=== PATIENT | male | born 1985 | race Hispanic/Latino ===

== ENCOUNTER 2017-08-10 17:57 | Emergency (ER) | payer OTHER ==
[~2017-08-10] VITALS: Ht 172.7 cm; Wt 97.5 kg
[~2017-08-10 17:57] MED LIST: IBUPROFEN400 MG PO; LANTUS100 UNITS/ SUB-Q; LISINOPRIL20 MG PO; NORVASC5 MG PO; NOVOLOG100 UNITS/ SUB-Q; OXYCODON-ACETA1 EAC2 PO; SIMVASTATIN10 MG PO; [UNRECOGNIZED DRUG - REMARK]
== END 2017-08-10 22:30 | disposition home or self-care (01) ==
LOC: ED 17:57
DX: K59.00 Constipation, unspecified (principal); I10 Essential (primary) hypertension; E11.9 Type 2 diabetes mellitus without complications; Z90.49 Acquired absence of other specified parts of digestive tract; Z79.899 Other long term (current) drug therapy
CPT/HCPCS: 74177; 80053; 81001; 83690; 85025; 96361; 96374; 96375; 99284; J2270; J2405; J7030; Q9967

== ENCOUNTER 2018-11-29 16:30 | Emergency (ER) | payer OTHER ==
[~2018-11-29] VITALS: Ht 172.7 cm; Wt 104.3 kg
--- OUTSIDE RECORDS SUMMARY | ~2018-11-29 | XMS | Clinical Summary ---
Demographics + + + | Address | [address] | | | [place] [address] | + + + | Home Phone | | + + + | Preferred Language | Unknown | + + + | Marital Status | Single | + + + | Holiness Affiliation | 1041 | + + + | Race | Unknown | + + + | Ethnic Group | Unknown | + + + Author + + + | Author | [facility] | | | and [place] | + + + | Organization | [facility] | | | and [place] | [...] Team Providers + +------+ + | Care B2B Sales Representative Name | Role | Phone | + +------+ + | Clayton Cortez PA-C | PP | | + +------+ + Allergies No Known Allergies Medications + + + +---------+------+------+-------+ | Medication | Sig | Dispensed | Refills | Star | End | Statu | | | | | | t | Date | s | | | | | | Date | | | + + + +---------+------+------+-------+ | | Take 1-2 tablets by | 20 | 0 | 05/2 | | Activ | | HYDROcodone-acetamin | mouth every 4 hours | tablet | | 3/20 | | e | | ophen (NORCO) 5-325 | as needed for Pain. | | | 15 | | | | mg per tablet | | | | | | | + + + +---------+------+------+-------+ Active Problems Not on file Social History + +-------+ +--------+------+ | Tobacco Use | Types | Packs/Day | Years | Date | | | | | Used | | + +-------+ +--------+------+ | Never Smoker | | | | | + +-------+ +--------+------+ + + +---------+ + | Alcohol Use | Drinks/We | oz/Week | Comments | | | ek | | | + + +---------+ + | No | | | | + + +---------+ + + + + | Sex Assigned at | Date Recorded | | | | + + + | Not on file | | + + + + + + + | Job Start Date | Occupation | Industry | + + + + | Not on file | Not on file | Not on file | + + + + + + + + | Travel History | Travel Start | Travel End | + + + + + + | No recent travel history available. | + + Last Filed Vital Signs + + + + | Vital Sign | Reading | Time Taken | + + + + | Blood Pressure | 138/94 | 12/08/20142312 PDT | + + + + | Pulse | 97 | 12/08/20142312 PDT | + + + + | Temperature | 36.9 C (98.4 F) | 12/08/20141951 PDT | + + + + | Respiratory Rate | 16 | 12/08/20141951 PDT | + + + + | Oxygen Saturation | 97% | 12/08/20142312 PDT | + + + + | Inhaled Oxygen | - | - | | Concentration | | | + + + + | Weight | 102.1 kg (225 lb) | 12/08/20141951 PDT | + + + + | Height | 172.7 cm (5' 7.99") | 12/08/20141951 PDT | + + + + | Body Mass Index | 34.22 | 12/08/20141951 PDT | + + + + Plan of Treatment + + + + + | Health Maintenance | Due Date | Last Done | Comments | + + + + + | Vaccine: | | | | | Dtap/Tdap/Td (1 - | 3 | | | | Tdap) | | | | + + + + + | Vaccine: Influenza | | | | | (Season Ended) | 9 | | | + + + + + Results Not on filefrom Last 3 Months Insurance + +--------+ +--------+ +---------+--------+ | Payer | Benefi | Subscriber | Effect | Phone | Address | Type | | | t Plan | ID | ricco | | | | | | / | | Dates | | | | | | Group | | | | | | + +--------+ +--------+ +---------+--------+ | [employer] | [employer] | [id number] | | [phone] | | Medica | | MEDICAID HMO | HEALTH | | 015-Pr | 1 | | id | | | MDCD | | esent | | | | | | [place]MO [place] | | | | | | + +--------+ +--------+ +---------+--------+ + +--------+ +--------+ + + | Guarantor Name | Accoun | Relation to | Date | Phone | Billing Address | | | t Type | Patient | of | | | | | | | | | | + +--------+ +--------+ + + | Ehsan Ontiveros | Person | Self [birth year] | [address] | | [place] | mayra/Aidan | | 1985 | [phone] | [place] | | | [place] | | | [address] (Home) | [address] | + +--------+ +--------+ + + Advance Directives Patient has advance care planning documents on file. For more information, please contact:[facility] [place] [address]
--- OUTSIDE RECORDS SUMMARY | ~2018-11-29 | XMS | Clinical Summary ---
Demographics + + + | Address | [address] | | | [place] [address] | + + + | Home Phone | | + + + | Preferred Language | Unknown | + + + | Marital Status | Single | + + + | Church Affiliation | 1041 | + + + | Race | Unknown | + + + | Ethnic Group | Unknown | + + + Author + + + | Author | [facility] | | | and [place] | + + + | Organization | [facility] | | | and [place] | [...] Team Providers + +------+ + | Care Costume Shop Coordinator Name | Role | Phone | + [...] | [employer] | MODA | [id number] | | [phone] | | Medica | [...] [place] | | | 2 (Home) | [address] | + +--------+ +--------+ + + Advance Directives Patient has advance care planning documents on file. For more information, please contact:[facility] [place] [address]
[2018-11-29] MEDS ORDERED: LANTUS100 UNITS/ SUB-Q (16:39)
[2018-11-29] MEDS ORDERED: ONDANSETRON ODT8 MG PO (19:34)
== END 2018-11-29 20:00 | disposition home or self-care (01) ==
LOC: ED 16:30
DX: R10.9 Unspecified abdominal pain (principal); E11.65 Type 2 diabetes mellitus with hyperglycemia; I10 Essential (primary) hypertension; Z90.49 Acquired absence of other specified parts of digestive tract; Z79.899 Other long term (current) drug therapy; Z79.4 Long term (current) use of insulin
CPT/HCPCS: 74177; 80053; 81001; 83690; 85025; 99284-25; J1170; J1815; J2405; J7030

== ENCOUNTER 2019-11-28 18:23 | Emergency (ER) | payer OTHER ==
[~2019-11-28] VITALS: Ht 172.7 cm; Wt 104.3 kg
--- OUTSIDE RECORDS SUMMARY | ~2019-11-28 | XMS | Encounter Summary ---
Demographics + + + | Address | [address] | | | [place] [address] | + + + | Home Phone | | + + + | Preferred Language | Unknown | + + + | Marital Status | Single | + + + | Muslim Affiliation | 1041 | + + + | Race | Unknown | + + + | Ethnic Group | Unknown | + + + Author + + + | Author | [facility] | | | and [place] | + + + | Organization | [facility] | | | and [...] Team Providers + +------+ + | Care Scholarship Counselor Name | Role | Phone | + [...] | | | | CENTER [address] | [address] [place] | Essential | | | | [place], [place] | [place] [address] | hypertension | | | | [address] | [phone] | | | | | [phone] | | | +--------+ + + + [...] recent travel history available. | + + documented as of this encounter [...] + + documented as of this encounter Plan of Treatment Not on [...] 29 | 0 - 60 U/L | [facility] | | | | [...] | + + + + + | [facility] | [address] | [place] | [phone] | | [facility] | | [address] | | | - LABORATORY | | [...] 10 | 7 - 18 mg/dL | [facility] | | | | | | [facility] | | | | | | MEDICAL | | | | | | CENTER - | | | | | | LABORATORY | | + + + + + + | Creatinine | 0.72 | 0.60 - 1.30 | [facility] | | | | | mg/dL | [facility] | | | | | | MEDICAL | | | | | | CENTER - | | | | | | LABORATORY | | + + + + + + | eGFR if not | >60Comment: GLOMERULAR | >=60 | [facility] | | | | FILTRATION | mL/min/1.73m2 | [facility] | | | INDIAN | RATE,ESTIMATED | | MEDICAL | | | | mL/min/1.54p0Qizw than | | CENTER - | | [...] | | Total | | | [facility] | | [...] | + + + + + | [facility] | [address] | [place] | [phone] | | [facility] | | [address] | | | - LABORATORY | | | | + + + + + CBC with Differential (12/08/2014 8:55 PM PDT) + + + + + + | Component | Value | Ref Range | Performed | Pathologist | | | | | At | Signature | + + + + + + | WBC | 9.9 | 4.0 - 11.0 K/uL | [facility] | | | | | | [facility] | | | | | | MEDICAL | | | | | | CENTER - | | | | | | LABORATORY | | + + + + + + | RBC | 5.58 | 4.30 - 5.70 | [facility] | | | | | M/uL | [facility] | | | | [...] | | Eosinophils | | | [facility] | | [...] | Lymphocytes | | K/uL | [facility] | | | | | | MEDICAL | | | | | | CENTER - | | | | | | LABORATORY | | + + + + + + | Absolute | 0.70 | 0.00 - 1.00 | [facility] | | | Monocytes | | K/uL | [facility] | | | | | | MEDICAL | | | | | | CENTER - | | | | | | LABORATORY | | + + + + + + | Absolute | 0.00 | 0.00 - 0.40 | [facility] | | | Eosinophils | | K/uL | [facility] | | | | | | MEDICAL | | | | | | CENTER - | | | | | | LABORATORY | | + + + + + + | Absolute | 0.10 | 0.00 - 0.10 | [facility] | | | Basophils | | K/uL | [facility] | [...] + + | [facility] | [address] | [place] | [phone] | | [facility] | | [address] | | | - LABORATORY | | [...]
--- OUTSIDE RECORDS SUMMARY | ~2019-11-28 | XMS | Clinical Summary ---
Demographics + + + | Address | [address] | | | [place] [address] | + + + | Home Phone | | + + + | Preferred Language | Unknown | + + + | Marital Status | Single | + + + | Gnosticism Affiliation | 1041 | + + + | Race | Unknown | + + + | Ethnic Group | Unknown | + + + Author + + + | Author | [facility] | | | and [place] | + + + | Organization | [facility] | | | [...] Team Providers + +------+ + | Care Splitting Machine Feeder Name | Role | Phone | + +------+ + | Clayton Cortez PA-C | PCP | | + +------+ + Allergies No [...] | | + + + + + Plan of Treatment + + + + + | Health Maintenance | Due Date | Last Done | Comments | + + + + + | Vaccine: | | | | | Dtap/Tdap/Td (1 - | 5 | | | | Tdap) | | | | + + + + + | Vaccine: Influenza | | | | | (Season Ended) | 0 | | | + + + + [...] | [employer] | MODA | [id number] | | [phone] | | Medica | [...] [address] | | [place] | al/Fam | | 1985 | [phone] | [place] | | | [place] | | | 2 (Home) | [address] | + +--------+ +--------+ + + Advance Directives + + + + + | Type | Date Recorded | Patient | Explanation | | | | Balance And Hairspring Assembler | | + + + + + | Power of | | | | | Founder / Ceo | | | | + + + + + | Advance | 12/08/2014 9:38 | | | | Directive | PM | | | + + + + +
--- OUTSIDE RECORDS SUMMARY | ~2019-11-28 | XMS | Encounter Summary ---
Demographics + + + | Address | [address] | | | [place] [address] | + + + | Home Phone | | + + + | Preferred Language | Unknown | + + + | Marital Status | Single | + + + | Mormonism Affiliation | 1041 | + + + | Race | Unknown | + + + | Ethnic Group | Unknown | + + + Author + + + | Author | [facility] | | | and [place] | + + + | Organization | [facility] | | | [...] Team Providers + +------+ + | Care Director Of Revenue Cycle Management Name | Role | Phone | + [...] | | | | CENTER [address] | [address] [place] | Essential | | | | [place], [place] | [place] [address] | hypertension | | | | [phone] | [phone] | | | | | [phone] | | | +--------+ + + + [...] [address] | [place] | [phone] | | [facility] | | [address] | | | - LABORATORY | | [...] | mL/min/1.73m2 | [facility] | | | AUSTRIAN | RATE,ESTIMATED | | MEDICAL | | | | mL/min/1.34r8Zars than | | CENTER - | | [...] + | [facility] | [address] | [place] | [phone] | | [facility] | | [address] | | | - LABORATORY | | [...] ST. | [address] | [place] | [phone] | | [facility] | | [address] | | | - LABORATORY | | [...]
--- OUTSIDE RECORDS SUMMARY | ~2019-11-28 | XMS | Clinical Summary ---
Demographics + + + | Address | [address] | | | [place] [address] | + + + | Home Phone | | + + + | Preferred Language | Unknown | + + + | Marital Status | Single | + + + | Scientologist Affiliation | 1041 | + + + | Race | Unknown | + + + | Ethnic Group | Unknown | + + + Author + + + | Author | [facility] | | | and [place] | + + + | Organization | [facility] | | | [...] Team Providers + +------+ + | Care Folder Stitcher Operator Name | Role | Phone | + [...] | [employer] | [employer] | [id number] | | [phone] | | Medica | [...] [place] | | | 2 (Home) | [address] | + +--------+ +--------+ + + Advance Directives + + + + + | Type | Date Recorded | Patient | Explanation | | | | Leather Parts Matcher | | + + + + + | Power of | | | | | Flight Operations Dispatch Clerk | | | | + + + + + | Advance | 12/08/2014 9:38 | | | | Directive | PM | | | + + + + +
[~2019-11-28 18:23] MED LIST changes: +ONDANSETRON ODT8 MG PO
--- NOTE | 2019-11-30 15:54 | EKG ---
[facility] [address] [facility] [address] [place] [address] Signed Normal sinus rhythm Normal ECG No previous ECGs available Confirmed by GARY WILSON MD ([id number]) on 11/30/2019 3:54:24 PM Electronically Signed By: GARY WILSON MD 11/30/19 1554 PATIENT NAME: MAGGIE DIAZ Electrocardiogram DATE OF : 83 PHYSICIAN: GARY WILSON MD REPORT #: [id number] REPORT IS CONFIDENTIAL AND NOT TO BE RELEASED WITHOUT AUTHORIZATION
== END 2019-11-28 19:33 | disposition home or self-care (01) ==
LOC: ED 18:23
DX: S01.511A Laceration without foreign body of lip, initial encounter (principal); R07.81 Pleurodynia; I10 Essential (primary) hypertension; E11.9 Type 2 diabetes mellitus without complications; Z79.899 Other long term (current) drug therapy
CPT/HCPCS: 71045; 93005; 93010; 99283-25

== ENCOUNTER 2020-03-15 11:42 | Emergency (ER) | payer OTHER ==
[~2020-03-15] VITALS: Ht 172.7 cm; Wt 104.3 kg
--- OUTSIDE RECORDS SUMMARY | ~2020-03-15 | XMS | Encounter Summary ---
Demographics + + + | Address | [address] | | | [place] [address] | + + + | Home Phone | | + + + | Preferred Language | Unknown | + + + | Marital Status | Single | + + + | Protestant Affiliation | 1041 | + + + | Race | Unknown | + + + | Ethnic Group | or | + + + Author + + + | Author | [facility] | | | and [place] | + + + | Organization | [facility] | | | and [place] | + + + | Address | Unknown | + + + | Phone | Unavailable | + + + Support + + +---------+ + | Name | Relationship | Address | Phone | + + +---------+ + | Aline Ontiveros | ECON | Unknown | | + + +---------+ + Care Team Providers + +------+ + | Care Car Worker Name | Role | Phone | + +------+ + | Clayton Cortez PA-C | PCP | | + +------+ + Reason for Visit + + + | Reason | Comments | + + + | Abdominal Pain | | + + + Encounter Details +--------+ + + + + | Date | Type | Department | Care Team | Description | +--------+ + + + + | 12/08/ | Emergency | [facility] | Alhaji Castillo | Gastroenteritis | | 2015 | | [facility] | MD [address] | (Primary Dx); | | | | CENTER [address] | [address] [place] | Essential | | | | [place], [place] | [place] [address] | hypertension | | | | [address] | [phone] | | | | | [phone] | | | +--------+ + + + + Social History + +-------+ +--------+------+ | Tobacco Use | Types | Packs/Day | Years | Date | | | | | Used | | + +-------+ +--------+------+ | Never Smoker | | | | | + +-------+ +--------+------+ + + +---------+ + | Alcohol Use | Drinks/Week | oz/Week | Comments | + + +---------+ + | No | | | | + + +---------+ + + + + | Sex Assigned at | Date Recorded | | | | + + + | Not on file | | + + + documented as of this encounter Last Filed Vital Signs + + + + + | Vital Sign | Reading | Time Taken | Comments | + + + + + | Blood Pressure | 138/94 | 12/08/2014 11:13 PM | | | | | PDT | | + + + + + | Pulse | 97 | 12/08/2014 11:13 PM | | | | | PDT | | + + + + + | Temperature | 36.9 C (98.4 F) | 12/08/2014 7:52 PM | | | | | PDT | | + + + + + | Respiratory Rate | 16 | 12/08/2014 7:52 PM | | | | | PDT | | + + + + + | Oxygen Saturation | 97% | 12/08/2014 11:13 PM | | | | | PDT | | + + + + + | Inhaled Oxygen | - | - | | | Concentration | | | | + + + + + | Weight | 102.1 kg (225 lb) | 12/08/2014 7:52 PM | | | | | PDT | | + + + + + | Height | 172.7 cm (5' 7.99") | 12/08/2014 7:52 PM | | | | | PDT | | + + + + + | Body Mass Index | 34.22 | 12/08/2014 7:52 PM | | | | | PDT | | + + + + + documented in this encounter Discharge Instructions Instructions Alhaji Castillo MD - 12/08/2014Drink plenty of fluids in frequent small amounts (about 1 ounce every 15 minutes). Pedialyte is best but if you can't stand the taste drink Gatorade or Powerade mixed 50-50 w ith water Expect 24-48 hours to start feeling better. Take Vicodin if needed for pain Take Zofran if needed for nausea and vomiting Take Imodium if needed for diarrhea It may take 3 or 4 more days for you to get better Talk to your doctor about getting back on high blood pressure medication. documented in this encounter Medications at Time of Discharge + + + +---------+ + + | Medication | Sig | Dispensed | Refills | Start | End Date | | | | | | Date | | + + + +---------+ + + | | Take 1-2 tablets by | 20 | 0 | 12/09/19 | | | HYDROcodone-acetamin | mouth every 4 hours | tablet | | 15 | | | ophen (NORCO) 5-325 | as needed for Pain. | | | | | | mg per tablet | | | | | | + + + +---------+ + + | ondansetron | Take 1 tablet by | 20 | 0 | 12/09/19 | | | (ZOFRAN ODT) 8 mg | mouth every 8 hours | tablet | | 15 | 5 | | disintegrating | as needed for Nausea | | | | | | tablet | for up to 7 days. | | | | | + + + +---------+ + + documented as of this encounter ED Alhaji Wetzel MD - 12/08/2014 8:50 PM PDTFormatting of this note might be differen t from the original. [facility] Ehsan Ontiveros Emergency Department Encounter Note [address] [place] [id number] PCP:Clayton Cortez [phone] eMERGENCY dEPARTMENT eNCOUnter CHIEF COMPLAINT Chief Complaint Patient presents with Abdominal Pain HPI Ehsan Ontiveros is a 29 y.o. male who presents with 3 days of nausea vomiting diarrh ea and left-sided abdominal pain. He also had a lot of gas. No fever or chills. No blood in the stool or urine. No urinary symptoms. Has a history of partial colectomy about 5 yea rs ago for diverticulitis. He had a colostomy until about 4 months ago and was reanastomose d at that time. He been doing fine until 3 days ago. He also has a history of hypertension but doesn't take medication for it. PAST MEDICAL HISTORY Past Medical History Diagnosis Date Hypertension Diabetes mellitus (HCC) SURGICAL HISTORY Past Surgical History Procedure Laterality Date Colostomy bag Abdomen surgery CURRENT MEDICATIONS Previous Medications No medications on file ALLERGIES No Known Allergies FAMILY HISTORY No family history on file. SOCIAL HISTORY History Social History Marital Status: Single Spouse Name: N/A Number of Children: N/A Years of Education: N/A Social History Main Topics Smoking status: Never Smoker Smokeless tobacco: None Alcohol Use: No Drug Use: No Sexual Activity: None Other Topics Concern None Social History Narrative None REVIEW OF SYSTEMS All systems negative except as marked. PHYSICAL EXAM VITAL SIGNS: (first vital signs):Temp: 36.9 C (98.4 F) Pulse: 84 Resp: 16 SpO2: 100 % B P: 200/104 mmHg Constitutional: Uncomfortable HENT: Atraumatic, Oropharynx moist, No exudates, Nose normal. Neck Supple, No stridor. Eyes: PERRL, EOMI Chest: Non tender, no deformity Respiratory: Equal, No respiratory distress, No wheezing, No Rhonchi , No rales Cardiovascular: Regular Rate and rhythm, No murmurs, No rubs. GI: Soft, tender diffusely on the left side. No tenderness on the right side., Non disten ded, No masses, No pulsatile masses, no hernias, no guarding, no rebound, Normal bowel soun ds, no increased tympany. Upper Extremities: Equal distal pulses, No edema, No tenderness, No cyanosis, Lower Extremities: Equal pulses, no edema, no tenderness Skin: No erythema, No rash. Neurologic: Alert & oriented x 3, Cranial nerves 2-12 intact, Normal upper and lower extre mity motor function, Normal upper and lower extremity sensory function, No focal deficits no oseas. Results for orders placed during the hospital encounter of 12/08/14 CBC WITH DIFFERENTIAL Result Value Ref Range WBC 9.9 4.0-11.0 K/uL RBC 5.58 4.30-5.70 M/uL Hgb 15.6 13.5-18.0 g/dL Hct 45.7 40.0-51.0 % MCV 81.9 (*) 83.0-101.0 fL MCH 28.0 28.0-35.0 pg MCHC 34.1 32.0-36.0 g/dL RDW 14.0 <15.0 % Platelet Count 248 140-440 K/uL MPV 7.5 % Neutrophils 77.1 45.0-82.0 % % Lymphocytes 14.4 (*) 20.0-45.0 % % Monocytes 7.3 4.0-12.0 % % Eosinophils 0.4 0.0-5.0 % % Basophils 0.8 0.0-1.0 % Absolute Neutrophils 7.60 1.80-8.50 K/uL Absolute Lymphocytes 1.40 0.60-3.20 K/uL Absolute Monocytes 0.70 0.00-1.00 K/uL Absolute Eosinophils 0.00 0.00-0.40 K/uL Absolute Basophils 0.10 0.00-0.10 K/uL COMPREHENSIVE METABOLIC PANEL Result Value Ref Range NA 136 136-149 mmol/L K 3.9 3.5-5.1 mmol/L CL 103 98-109 mmol/L CO2 26 24-31 mmol/L ANION GAP 7 3-16 mmol/L GLUCOSE 189 (*) 70-109 mg/dL BUN 10 7-18 mg/dL Creatinine, Serum/Plasma 0.72 0.60-1.30 mg/dL eGFR if not >60 >=60 mL/min/1.73m2 CALCIUM 9.5 8.3-10.5 mg/dL ALBUMIN 4.0 3.2-5.0 g/dL BILIRUBIN TOTAL 0.6 0.1-1.5 mg/dL Total protein 8.4 (*) 6.0-7.8 g/dL AST 17 10-42 U/L ALT 22 6-45 U/L ALK PHOS 96 40-110 U/L GLOBULIN 4.4 Albumin/Globulin ratio 0.9 BUN/CREA 13.9 LIPASE Result Value Ref Range LIPASE 29 0-60 U/L RADIOLOGY Formal Radiology Interpretations: Ct Abdomen Pelvis W Contrast 12/08/2014 DISCLAIMER: This is a preliminary report provided by [facility] JULIEN Farrar. A final report is available at [facility]. CT ABDOMEN AND PELVIS WITH CONTRAST CLINICAL INFORMATION: Pain. COMPARISON: None. PROCEDURE: Axi al images through the abdomen and pelvis after the administration of 85 ml omnipaque 350 int ravenous contrast. Multiplanar reconstructions. FINDINGS: LUNG BASES: Lungs are clear. Es ophagus terminates normally at the gastroesophageal junction. Heart size normal. ABDOMEN Liver and Biliary: No gallbladder or biliary abnormality. No significant liver abnormality. Pancreas, Spleen and Adrenals: No pancreatic mass, ductal dilatation or necrosis. No peripan creatic inflammation. No splenomegaly or splenic mass. No significant adrenal abnormality. Kidneys: No hydronephrosis, calculus or solid renal mass. ABDOMEN AND PELVIS Bowel: No sma ll bowel or colonic dilation, inflammation or mass. Small surgical clip demonstrated the ce young tip, likely related to prior appendectomy. Sigmoid diverticulosis without diverticuliti s. Vessels: No significant abnormality in the aorta, its proximal branches or the iliac fidencio carlos. No significant abnormality in the portal veins, mesenteric veins or systemic veins. Ly mph Nodes: No adenopathy. Peritoneum and Retroperitoneum: No intraperitoneal free air, ascit es or peritoneal mass. No significant retroperitoneal abnormality. PELVIS Genitourinary: B ladder is fluid filled. Prostate normal in size. No pelvic mass. BODY WALL Soft Tissues: There is focal fat stranding along the superior right anterior abdominal wall, likely relat ed to prior abdominal incision. No focal fluid collections. No hernias. Bones: No acute fra cture or vertebral end plate destruction. No lytic or blastic lesion. IMPRESSION: 1. No evidence for the etiology of the patient's abdominal pain. 2. Suspect previous appendectomy. Report sent: 12/08/2014 9:47:00 PM ED COURSE & MEDICAL DECISION MAKING Last Set of Vital Signs: Temp: 36.9 C (98.4 F) Pulse: 96 Resp: 16 SpO2: 97 % BP: 163/93 mmHg Pertinent Labs & Imaging studies reviewed. (See chart for details) Nursing notes and prior records are reviewed Patient presents with symptoms suggestive of gastroenteritis but with left sided abdominal pain. He's had a partial colectomy for diverticulitis 5 years ago. He does not appear to h ave any sign of obstruction by my concern is that he may have recurrent diverticulitis. Lab s were obtained as well as CT. He was also noted to be hypertensive and has known hypertens ion but does not take his medication. Labs are unremarkable. CT was read as negative by e radiologist. He was hydrated here with IV fluids. He was given Zofran for nausea and vom iting and did well. Is given Dilaudid for pain. FINAL IMPRESSION 1. Gastroenteritis 2. Essential hypertension Plan: Follow-up Information Follow up with [facility]. Specialty: Emergency Medicine Why: If symptoms worsen Contact information: [address] [place] [address] Discharge Instructions Drink plenty of fluids in frequent small amounts (about 1 ounce every 15 minutes). Pedialyte is best but if you can't stand the taste drink Gatorade or Powerade mixed 50-50 w ith water Expect 24-48 hours to start feeling better. Take Vicodin if needed for pain Take Zofran if needed for nausea and vomiting Take Imodium if needed for diarrhea It may take 3 or 4 more days for you to get better Talk to your doctor about getting back on high blood pressure medication. Portions of this chart have been created with [employer] voice recognition software. Occasiona l wrong-word or sound-alike substitutions may have occurred due to the inherent limita tions of voice recognition software. Please read the chart carefully and recognize, using co ntext, where these substitutions have occurred. Alhaji Castillo MD 12/08/14 [facility] encounter Miscellaneous Notes ED Triage Notes - Leanna Nolen, RN - 12/08/2014 7:51 PM PDTPt reports LUQ pain for the p ast three days with nausea and vomiting. Reports his mom is here with the same symptoms and they got sick about the same time. documented in this encounter Plan of Treatment Not on filedocumented as of this encounter Procedures + +--------+ + + + | Procedure Name | Priori | Date/Time | Associated Diagnosis | Comments | | | ty | | | | + +--------+ + + + | CT ABDOMEN PELVIS W | STAT | 12/08/2014 | | Results for this | | CONTRAST | | 9:17 PM | | procedure are in the | | | | PDT | | results section. | + +--------+ + + + | CBC WITH | STAT | 12/08/2014 | | Results for this | | DIFFERENTIAL | | 8:55 PM | | procedure are in the | | | | PDT | | results section. | + +--------+ + + + | LIPASE | STAT | 12/08/2014 | | Results for this | | | | 8:55 PM | | procedure are in the | | | | PDT | | results section. | + +--------+ + + + | COMPREHENSIVE | STAT | 12/08/2014 | | Results for this | | METABOLIC PANEL | | 8:55 PM | | procedure are in the | | | | PDT | | results section. | + +--------+ + + + documented in this encounter Results CT Abdomen Pelvis w Contrast (12/08/2014 9:17 PM PDT) + + | Specimen | + + | | + + + + + | Narrative | Performed At | + + + | CT ABDOMEN PELVIS W CONTRAST. 12/08/2014 8:50 PM HISTORY: | [facility] | | Pain. COMPARISON: None available. TECHNIQUE: Axial | | | images were obtained through the abdomen and pelvis following the | | | uneventful intravenous administration of 85 mL Omnipaque 350 contrast. | | | Multiplanar reformatted images created. RADIATION DOSE: DLP | | | 682 mGy-cm FINDINGS: The lung bases are clear. Lower | | | mediastinal structures are unremarkable. The liver, gallbladder, | | | pancreas, spleen, and bilateral adrenal glands are normal. Both | | | kidneys are within normal limits, without stone or hydronephrosis. No | | | ureteral abnormalities. The stomach, duodenum, and small bowel | | | are within normal limits. The large bowel is within normal limits. | | | The ileocecal junction is within normal limits. Surgical clip seen at | | | the tip of the cecum, compatible with prior appendectomy. No | | | inflammation in the region of the cecum. There is no free | | | intraperitoneal air or fluid. No pathologically enlarged abdominal or | | | pelvic lymph nodes. Abdominal and pelvic vasculature is within | | | normal limits Bladder is within normal limits in appearance. | | | Note is made of what appears to be two surgical clips located near | | | the superior margin of the bladder, of uncertain significance. The | | | prostate and seminal vesicles are within normal limits. The osseous | | | structures are unremarkable, without lytic or blastic lesion. | | | Appearance of scarring is seen in the midline anterior abdominal wall. | | | Stranding of the tissues is also seen in the right lateral anterior | | | abdominal wall, with what appears to be a focal area of splitting of | | | the right rectus abdominis musculature, possibly representing | | | scarring from prior surgical trocar site. The subcutaneous soft | | | tissues and muscles are otherwise unremarkable. IMPRESSION - | | | No acute abnormality to explain the patient's abdominal pain. | | | Findings compatible with prior appendectomy. Comment: Results of | | | this exam were provided by the after-hours radiology service on | | | completion of the study and sent: 12/08/2014 9:47:00 PM Dictated | | | and Signed by: Santos Jones MD Electronically signed: | | | 12/10/2014 11:26 AM | | + + + + + | Procedure Note | + + | Jude, Rad Results In - 12/10/2014 11:[address] ABDOMEN PELVIS W CONTRAST. | | 12/08/2014 8:50 PM HISTORY: Pain. COMPARISON: None available. TECHNIQUE: Axial | | images were obtained through the abdomen and pelvis followingthe uneventful intravenous | | administration of 85 mL Omnipaque 350 contrast. Multiplanar reformatted images | | created.RADIATION DOSE: DLP 682 mGy-cmFINDINGS: The lung bases are clear. Lower | | mediastinal structures are unremarkable.The liver, gallbladder, pancreas, spleen, and | | bilateral adrenal glands arenormal.Both kidneys are within normal limits, without stone | | or hydronephrosis.No ureteral abnormalities.The stomach, duodenum, and small bowel are | | within normal limits.The large bowel is within normal limits.The ileocecal junction is | | within normal limits.Surgical clip seen at the tip of the cecum, compatible with prior | | appendectomy. No inflammation in the region of the cecum.There is no free | | intraperitoneal air or fluid.No pathologically enlarged abdominal or pelvic lymph | | nodes.Abdominal and pelvic vasculature is within normal limitsBladder is within normal | | limits in appearance. Note is made of what appears lalo two surgical clips located near | | the superior margin of the bladder, ofuncertain significance.The prostate and seminal | | vesicles are within normal limits.The osseous structures are unremarkable, without lytic | | or blastic lesion.Appearance of scarring is seen in the midline anterior abdominal | | wall. Stranding of the tissues is also seen in the right lateral anterior abdominalwall, | | with what appears to be a focal area of splitting of the right rectusabdominis | | musculature, possibly representing scarring from prior surgical trocarsite. The | | subcutaneous soft tissues and muscles are otherwise unremarkable. IMPRESSION - No acute | | abnormality to explain the patient's abdominal pain.Findings compatible with prior | | appendectomy.Comment: Results of this exam were provided by the after-hours radiology | | serviceon completion of the study and sent: 12/08/2014 9:47:00 PMDictated and Signed by: | | Santos Jones MD Electronically signed: 12/10/2014 11:26 AM | | | |There is no free intraperitoneal air or fluid. | |No pathologically enlarged abdominal or pelvic lymph nodes. | |Abdominal and pelvic vasculature is within normal limits | | | |Bladder is within normal limits in appearance. Note is made of what appears to | |be two surgical clips located near the superior margin of the bladder, of | |uncertain significance. | |The prostate and seminal vesicles are within normal limits. | |The osseous structures are unremarkable, without lytic or blastic lesion. | |Appearance of scarring is seen in the midline anterior abdominal wall. | |Stranding of the tissues is also seen in the right lateral anterior abdominal | |wall, with what appears to be a focal area of splitting of the right rectus | |abdominis musculature, possibly representing scarring from prior surgical trocar | |site. The subcutaneous soft tissues and muscles are otherwise unremarkable. | | | | | |IMPRESSION - | |No acute abnormality to explain the patient's abdominal pain. | |Findings compatible with prior appendectomy. | | | |Comment: Results of this exam were provided by the after-hours radiology service | |on completion of the study and sent: 12/08/2014 9:47:00 PM | | | |Dictated and Signed by: Santos Jones MD | | Electronically signed: 12/10/2014 11:26 AM | + + + +---------+ + + | Performing | Address | City/State/Zipcode | Phone Number | | Organization | | | | + +---------+ + + | [facility] | | | | + +---------+ + + Lipase (12/08/2014 8:55 PM PDT) + +-------+ + + + | Component | Value | Ref Range | Performed | Pathologist | | | | | At | Signature | + +-------+ + + + | Lipase | 29 | 0 - 60 U/L | [facility] | | | | | | [facility] | | | | | | [facility] | | | | | | C[facility] - | | | | | | LABORATORY | | + +-------+ + + + + + | Specimen | + + | Blood | + + + + + + + | Performing | Address | City/State/Zipcode | Phone Number | | Organization | | | | + + + + + | [facility] | [address] | [place] | [phone] | | [facility] | | [address] | | | - LABORATORY | | | | + + + + + Comprehensive Metabolic Panel (12/08/2014 8:55 PM PDT) + + + + + + | Component | Value | Ref Range | Performed | Pathologist | | | | | At | Signature | + + + + + + | Na | 136 | 136 - 149 | [facility] | | | | | mmol/L | [facility] | | | | | | MEDICAL | | | | | | CENTER - | | | | | | LABORATORY | | + + + + + + | K | 3.9 | 3.5 - 5.1 | [facility] | | | | | mmol/L | [facility] | | | | | | MEDICAL | | | | | | CENTER - | | | | | | LABORATORY | | + + + + + + | Cl | 103 | 98 - 109 mmol/L | [facility] | | | | | | [facility] | | | | | | [facility] | | | | | | CENTER - | | | | | | LABORATORY | | + + + + + + | CO2 | 26 | 24 - 31 mmol/L | [facility] | | | | | | [facility] | | | | | | [facility] | | | | | | CENTER - | | | | | | LABORATORY | | + + + + + + | Anion Gap | 7 | 3 - 16 mmol/L | [facility] | | | | | | [facility] | | | | | | MEDICAL | | | | | | CENTER - | | | | | | LABORATORY | | + + + + + + | Glucose | 189 (H) | 70 - 109 mg/dL | [facility] | | | | | | [facility] | | | | | | MEDICAL | | | | | | CENTER - | | | | | | LABORATORY | | + + + + + + | BUN | 10 | 7 - 18 mg/dL | [facility] | | | | | | [facility] | | | | | | [facility] | | | | | | CENTER - | | | | | | LABORATORY | | + + + + + + | Creatinine | 0.72 | 0.60 - 1.30 | [facility] | | | | | mg/dL | [facility] | | | | | | MEDICAL | | | | | | CENTER - | | | | | | LABORATORY | | + + + + + + | eGFR, | >60Comment: GLOMERULAR | >=60 | [facility] | | | non- | FILTRATION | mL/min/1.73m2 | [facility] | | | [place] | RATE,ESTIMATED | | MEDICAL | | | | mL/min/1.03k9Phcu than | | CENTER - | | | | 60 Chronic kidney | | LABORATORY | | | | disease,if found over a | | | | | | 3-month period.Less than | | | | | | 15 Kidney failureFor | | | | | | | | | | | | Americans,multiply the | | | | | | calculated GFR by 1.21. | | | | | | | | | | + + + + + + | Calcium | 9.5 | 8.3 - 10.5 | [facility] | | | | | mg/dL | [facility] | | | | | | MEDICAL | | | | | | CENTER - | | | | | | LABORATORY | | + + + + + + | Albumin | 4.0 | 3.2 - 5.0 g/dL | [facility] | | | | | | [facility] | | | | | | MEDICAL | | | | | | CENTER - | | | | | | LABORATORY | | + + + + + + | Bilirubin | 0.6 | 0.1 - 1.5 mg/dL | [facility] | | | Total | | | [facility] | | | | | | MEDICAL | | | | | | CENTER - | | | | | | LABORATORY | | + + + + + + | Total | 8.4 (H) | 6.0 - 7.8 g/dL | [facility] | | | Protein | | | [facility] | | | | | | MEDICAL | | | | | | CENTER - | | | | | | LABORATORY | | + + + + + + | AST | 17 | 10 - 42 U/L | [facility] | | | | | | [facility] | | | | | | MEDICAL | | | | | | CENTER - | | | | | | LABORATORY | | + + + + + + | ALT | 22 | 6 - 45 U/L | [facility] | | | | | | [facility] | | | | | | MEDICAL | | | | | | CENTER - | | | | | | LABORATORY | | + + + + + + | Alkaline | 96 | 40 - 110 U/L | [facility] | | | Phosphatase | | | [facility] | | | | | | MEDICAL | | | | | | CENTER - | | | | | | LABORATORY | | + + + + + + | Globulin | 4.4 | g/dL | [facility] | | | | | | [facility] | | | | | | MEDICAL | | | | | | CENTER - | | | | | | LABORATORY | | + + + + + + | Albumin/Felicity | 0.9 | | [facility] | | | bulin Ratio | | | [facility] | | | | | | MEDICAL | | | | | | CENTER - | | | | | | LABORATORY | | + + + + + + | BUN/Creatin | 13.9 | | [facility] | | | ine Ratio | | | [facility] | | | | | | MEDICAL | | | | | | CENTER - | | | | | | LABORATORY | | + + + + + + + + | Specimen | + + | Blood | + + + + + + + | Performing | Address | City/State/Zipcode | Phone Number | | Organization | | | | + + + + + | [facility] | [address] | [place] | [phone] | | [facility] | | [address] | | | - LABORATORY | | | | + + + + + CBC with Differential (12/08/2014 8:55 PM PDT) + + + + + + | Component | Value | Ref Range | Performed | Pathologist | | | | | At | Signature | + + + + + + | White Blood | 9.9 | 4.0 - 11.0 K/uL | [facility] | | | Cells | | | [facility] | | | | | | MEDICAL | | | | | | CENTER - | | | | | | LABORATORY | | + + + + + + | Red Blood | 5.58 | 4.30 - 5.70 | [facility] | | | Cells | | M/uL | [facility] | | | | | | MEDICAL | | | | | | CENTER - | | | | | | LABORATORY | | + + + + + + | Hemoglobin | 15.6 | 13.5 - 18.0 | [facility] | | | | | g/dL | [facility] | | | | | | MEDICAL | | | | | | CENTER - | | | | | | LABORATORY | | + + + + + + | Hematocrit | 45.7 | 40.0 - 51.0 % | [facility] | | | | | | [facility] | | | | | | MEDICAL | | | | | | CENTER - | | | | | | LABORATORY | | + + + + + + | MCV | 81.9 (L) | 83.0 - 101.0 fL | [facility] | | | | | | [facility] | | | | | | MEDICAL | | | | | | CENTER - | | | | | | LABORATORY | | + + + + + + | MCH | 28.0 | 28.0 - 35.0 pg | [facility] | [facility] | [facility] | | [facility] | | | [facility] | | | | | | [facility] - | | | | | | LABORATORY | | + + + + + + | MCHC | 34.1 | 32.0 - 36.0 | [facility] | | | | | g/dL | [facility] | | | | | | MED[facility] | | | | | | CENTER - | | | | | | LABORATORY | | + + + + + + | RDW-CV | 14.0 | <15.0 % | [facility] | | | | | | [facility] | | [facility] | | | [facility] | | | | | | C[facility] - | | | | | | LABORATORY | | + + + + + + | Platelet | 248 | 140 - 440 K/uL | [facility] | | | Count | | | [facility] | | | | | | [facility] | | | | | | CENTER - | | | | | | LABORATORY | | + + + + + + | MPV | 7.5 | fL | [facility] | | | | | | [facility] | | | | | | [facility] | | | | | | [facility]ENTER - | | | | | | LABORATORY | | + + + + + + | % | 77.1 | 45.0 - 82.0 % | [facility] | | | Neutrophils | | | [facility] | | | | | | [facility]ICAL | | | | | | CENTER - | | | | | | LABORATORY | | + + + + + + | % | 14.4 (L) | 20.0 - 45.0 % | [facility] | | | Lymphocytes | | | [facility] | | | | | | MEDICAL | | | | | | CENTER - | | | | | | LABORATORY | | + + + + + + | % Monocytes | 7.3 | 4.0 - 12.0 % | [facility] | | | [facility] | [facility] | | | [facility] - | | | | | | LABORATORY | | + + + + + + | % | 0.4 | 0.0 - 5.0 % | [facility] | | | Eosinophils | | | [facility] | | | | | | MEDICAL | | | | | | CENTER - | | | | | | LABORATORY | | + + + + + + | % Basophils | 0.8 | 0.0 - 1.0 % | [facility] | | | | | | [facility] | | | | | | [facility] | | | | | | CENTER - | | | | | | LABORATORY | | + + + + + + | Absolute | 7.60 | 1.80 - 8.50 | [facility] | | | Neutrophils | | K/uL | [facility] | | | | | | MEDICAL | | | | | | CENTER - | | | | | | LABORATORY | | + + + + + + | Absolute | 1.40 | 0.60 - 3.20 | [facility] | | | Lymphocytes | | K/uL | [facility] | | | | | | [facility]ICAL | | | | | | CENTER - | | | | | | LABORATORY | | + + + + + + | Absolute | 0.70 | 0.00 - 1.00 | [facility] | | | Monocytes | | K/uL | [facility] | | | | | | MEDICAL | | | | | | CENTER - | | | | | | LABORATORY | | + + + + + + | Absolute | 0.00 | 0.00 - 0.40 | [facility] | | | Eosinophils | | K/uL | [facility] | | | | | | MEDICAL | | | | | | CENTER - | | | | | | LABORATORY | | + + + + + + | Absolute | 0.10 | 0.00 - 0.10 | [facility] | | | Basophils | | K/uL | [facility] | | | | | | MEDICAL | | | | | | CENTER - | | | | | | LABORATORY | | + + + + + + + + | Specimen | + + | Blood | + + + + + + + | Performing | Address | City/State/Zipcode | Phone Number | | Organization | | | | + + + + + | [facility] | [address] | [place] | [phone] | | [facility] | | [address] | | | - LABORATORY | | | | + + + + + documented in this encounter Visit Diagnoses + + | Diagnosis | + + | Gastroenteritis - Primary Other and unspecified noninfectious gastroenteritis and | | colitis | + + | Essential hypertension Unspecified essential hypertension | + + documented in this encounter Administered Medications + + + + +------+------+ | Medication Order | MAR | Action | Dose | Rate | Site | | | Action | Date | | | | + + + + +------+------+ | HYDROcodone-acetaminophen | Dispense | 12/09/19 | 1 tablet | | | | (NORCO) 5-325 mg per tablet (ER | to Home | 15 11:19 | | | | | Prepack) 1-2 tablet 1-2 tablet, | | PM PDT | | | | | Oral, ONCE, 12/08/14 at 2230, | | | | | | | For 1 dose, Take 1 to 2 pills by | | | | | | | mouth every 4 hours as needed for | | | | | | | pain, | | | | | | + + + + +------+------+ +---+---+ | | | +---+---+ + +------+ +------+---+---+ | HYDROmorphone (DILAUDID) | Push | 12/09/19 | 1 mg | | | | injection 1 mg 1 mg, | | 15 10:04 | | | | | Intravenous, ONCE, 12/08/14 at | | PM PDT | | | | | 2230, For 1 dose | | | | | | + +------+ +------+---+---+ +---+---+ | | | +---+---+ + +-------+ +------+---+---+ | HYDROmorphone (PF) (DILAUDID) 1 | Given | 12/09/19 | 1 mg | | | | mg/mL injection 1 mg 1 mg, | | 15 9:03 | | | | | Intravenous, ONCE, 12/08/14 at | | PM PDT | | | | | 2115, For 1 dose | | | | | | + +-------+ +------+---+---+ +---+---+ | | | +---+---+ + +-------+ +------+---+---+ | HYDROmorphone (PF) (DILAUDID) 1 | Given | 12/09/19 | 1 mg | | | | mg/mL injection 1 mg 1 mg, | | 15 10:47 | | | | | Intravenous, EVERY 15 MIN PRN, | | PM PDT | | | | | Pain, Starting 12/08/14 at | | | | | | | 2207, For 5 doses | | | | | | + +-------+ +------+---+---+ +---+---+ | | | +---+---+ + +-------+ +--------+---+---+ | iohexol (OMNIPAQUE 350) 350 | Given | 12/09/19 | 85 mLs | | | | mg/mL injection 85 mL 85 mL, | | 15 9:18 | | | | | Intravenous, ONCE PRN, Other, | | PM PDT | | | | | Starting 12/08/14 at 2117, For | | | | | | | 1 dose, Cat Scanner | | | | | | + +-------+ +--------+---+---+ +---+---+ | | | +---+---+ + + + +------+---+---+ | ondansetron (ZOFRAN ODT) | Dispense | 12/09/19 | 4 mg | | | | disintegrating tablet (ED | to Home | 15 11:19 | | | | | homepack) 4 mg 4 mg, Oral, EVERY | | PM PDT | | | | | 8 HOURS PRN, Nausea, Starting | | | | | | | 12/08/14 at 2201, Dissolve on | | | | | | | tongue or swallow 1 or 2 tablets | | | | | | | every 8 hours prn nausea or | | | | | | | vomiting Dispense for home use., | | | | | | | | | | | | | + + + +------+---+---+ +---+---+ | | | +---+---+ + +-------+ +------+---+---+ | ondansetron (ZOFRAN) injection | Given | 12/09/19 | 4 mg | | | | 4 mg 4 mg, Intravenous, ONCE, | | 15 9:03 | | | | | 12/08/14 at 2115, For 1 dose | | PM PDT | | | | + +-------+ +------+---+---+ +---+---+ | | | +---+---+ + +---------+ +--------+-------+---+ | sodium chloride 0.9% (NS) bolus | New Bag | 12/09/19 | 1,000 | 2000 | | | 1,000 mL 1,000 mL, Intravenous, | | 15 9:01 | mLs | mL/hr | | | Administer over 30 Minutes, | | PM PDT | | | | | ONCE, 12/08/14 at 2115, For 1 | | | | | | | dose, Bolus, | | | | | | + +---------+ +--------+-------+---+ +---+---+ | | | +---+---+ + +---------+ +--------+-------+---+ | sodium chloride 0.9% (NS) bolus | New Bag | 12/09/19 | 1,000 | 2000 | | | 1,000 mL 1,000 mL, Intravenous, | | 15 10:09 | mLs | mL/hr | | | Administer over 30 Minutes, | | PM PDT | | | | | ONCE, 12/08/14 at 2230, For 1 | | | | | | | dose | | | | | | + +---------+ +--------+-------+---+ +---+---+ | | | +---+---+ documented in this encounter
--- OUTSIDE RECORDS SUMMARY | ~2020-03-15 | XMS | Clinical Summary ---
Demographics + + + | Address | [address] | | | [place] [address] | + + + | Home Phone | | + + + | Preferred Language | Unknown | + + + | Marital Status | Single | + + + | Caodaism Affiliation | [id number] | + + + | Race | Unknown | + + + | Ethnic Group | or | + + + Author + + + | Author | [facility] | | | and [place] | + + + | Organization | [facility] | | | [...] Team Providers + +------+ + | Care Tool Setter Name | Role | Phone | + [...] on file | | + + + Last Filed Vital Signs + [...] + + Plan of Treatment + + +-------+ + | Health Maintenance | Due Date | Last | Comments | | | | Done | | + + +-------+ + | Vaccine: | | | | | Dtap/Tdap/Td (1 - | 3 | | | | Tdap) | | | | + + +-------+ + | Vaccine: Influenza | | | | | (#1) | 0 | | | + + +-------+ + Results Not on filefrom Last 3 [...] | [employer] | [employer] | [id number] | | [phone] | | [employer] | | MEDICAID HMO [...] al/Fam | | 1985 | [phone] | [place] | | | [place] | | | 2 (Home) | [id number] | + +--------+ +--------+ + + Advance Directives + + + + + | Type | Date Recorded | Patient | Explanation | | | | Appeals Examiner | | + + + + + | Power of | | | | | Group Cio | | | | + + + + + | Advance | 12/08/2014 9:38 | | | | Directive | PM | | | + + + + +
[2020-03-15] MEDS ORDERED: NORCO 7.5-3251 EACH PO (16:41)
[2020-03-15] MEDS ORDERED: KEFLEX500 MG PO (16:41)
== END 2020-03-15 17:14 | disposition home or self-care (01) ==
LOC: ED 11:42
DX: N48.22 Cellulitis of corpus cavernosum and penis (principal); E11.65 Type 2 diabetes mellitus with hyperglycemia; I10 Essential (primary) hypertension; Z79.4 Long term (current) use of insulin
CPT/HCPCS: 80053; 81001; 83605; 85025; 96361; 96374; 99283-25; A9270; J0690; J1815; J7030